=== PATIENT | female | born 1995 | race Caucasian/White ===

== ENCOUNTER 2022-03-24 18:54 | Emergency (ER) | payer MEDICAID ==
[~2022-03-24] VITALS: Ht 157.5 cm; Wt 56.7 kg
--- NOTE | 2022-03-24 19:46 | NUR ---
Patient A/O x4. NAD noted. Friend at bedside.
--- NOTE | 2022-03-24 19:46 | NUR ---
Patient is a/ox4, NAD noted
--- NOTE | 2022-03-24 19:50 | NUR ---
Flu and COVID specimen sent to lab.
--- NOTE | 2022-03-24 19:52 | NUR ---
Dr. Phillip at bedside. MSE in progress.
[2022-03-24] MEDS ORDERED: OXYCODONE/APAP 5-325 MG TABLET PO ONE (20:00)
[2022-03-24] MEDS ORDERED: ALBUTEROL SULFATE 2.5 MG/ 0.5 ML NEBU NEB ONE (20:00)
[2022-03-24 20:06] LABS: MEAN CORPUSCULAR HEMOGLOBIN 27.8 uug (24.7-32.8); MEAN CORPUSCULAR VOLUME 83.6 fL (75.5-95.3); PLATELET COUNT (AUTO) 253 K/uL (179-408)
[2022-03-24 20:08] LABS: NEUTROPHILS % (MANUAL) 0 % (42-75)
[2022-03-24 20:23] LABS: CREATININE 0.8 mg/dL (0.6-1.3); POTASSIUM 3.5 mmol/L (3.5-5.1)
[2022-03-24] MEDS ORDERED: OXYCODONE/APAP 5-325 MG TABLET ONE (20:38)
[2022-03-24] MEDS ORDERED: ALBUTEROL SULFATE 2.5 MG/ 0.5 ML NEBU ONE (20:39)
[2022-03-24] MEDS ORDERED: OXYC-128 PO (21:04)
[2022-03-24] MEDS ORDERED: ALBU6.7H9 INH (21:04)
--- NOTE | 2022-03-24 21:28 | NUR ---
Patient discharged to home in stable condition. A/O x4. NAD noted. Ambulatory with a steady gait. All belongings with patient. Written and verbal after care instructions given. Patient verbalizes understanding of instructions. Stressed follow up or return to ER for worsening s/s.
[2022-03-24 21:39] VITALS: BP 132/81
== END 2022-03-24 21:28 | disposition home or self-care (01) ==
LOC: ER 19:03
DX: J45.909 Unspecified asthma, uncomplicated (principal); Z20.822 Contact with and (suspected) exposure to COVID-19; Z88.0 Allergy status to penicillin; R06.2 Wheezing
CPT/HCPCS: 36415; 70030-TC; 71045; 84484; 85025; 87400; 94640; A4663

== ENCOUNTER 2022-04-23 14:27 | Emergency (ER) | payer MEDICAID ==
[~2022-04-23] VITALS: Ht 157.5 cm; Wt 56.7 kg
[~2022-04-23 14:27] MED LIST: ALBU6.7H9 INH; OXYC-128 PO
[2022-04-23] MEDS ORDERED: ACETAMINOPHEN 325 MG TABLET PO ONE (14:45)
[2022-04-23] MEDS ORDERED: ACETAMINOPHEN 325 MG TABLET ONE (14:49)
--- NOTE | 2022-04-23 14:50 | NUR ---
NO bed avail in ER, pt is sitting in a wheelchair, in hallway.
--- NOTE | 2022-04-23 14:55 | NUR ---
COVID and flu swabs collected and taken to LAB.
[2022-04-23] MEDS ORDERED: IBUP-1955 PO (15:24)
[2022-04-23] MEDS ORDERED: BENZ-13 PO (15:24)
--- NOTE | 2022-04-23 16:34 | NUR ---
Patient discharged to home in stable condition. Written and verbal after care instructions given. Patient verbalizes understanding of instructions. Stressed follow up or return to ER for worsening s/s.
[2022-04-23 18:17] VITALS: BP 114/76
== END 2022-04-23 16:50 | disposition home or self-care (01) ==
LOC: ER 14:27
DX: J06.9 Acute upper respiratory infection, unspecified (principal); B97.89 Other viral agents as the cause of diseases classified elsewhere; Z88.0 Allergy status to penicillin; Z87.09 Personal history of other diseases of the respiratory system; Z20.822 Contact with and (suspected) exposure to COVID-19
CPT/HCPCS: 99284; 71045; 87400; 36415; U0003; C9803; A4663